=== PATIENT | male | born 1990 | race Caucasian/White ===

== ENCOUNTER 2021-08-11 09:36 | Emergency (ER) | payer OTHER ==
[~2021-08-11] VITALS: Ht 185.4 cm; Wt 113.4 kg
--- NOTE | 2021-08-11 15:39 | EKG ---
[facility] [address] [facility] [place] [address] Signed Normal sinus rhythm with sinus arrhythmia Normal ECG No previous ECGs available Confirmed by MADDI HORTON MD ([id number] on 08/11/2021 3:39:28 PM Electronically Signed By: MADDI HORTON MD 08/11/21 1539 PATIENT NAME: AMANDA BLACKMON Electrocardiogram DATE OF : 86 PHYSICIAN: MADDI HORTON MD REPORT #: [id number] REPORT IS CONFIDENTIAL AND NOT TO BE RELEASED WITHOUT AUTHORIZATION
== END 2021-08-11 11:19 | disposition home or self-care (01) ==
LOC: ED 09:36
DX: R55 Syncope and collapse (principal); R05.9 Cough, unspecified; Z88.0 Allergy status to penicillin; Z88.2 Allergy status to sulfonamides
CPT/HCPCS: 36415; 71045; 80048; 85025; 93005; 93010; 99284-25